=== PATIENT | female | born 1960 | race Caucasian/White ===

== ENCOUNTER 2016-12-17 06:35 | Day surgery (SDC) | payer BC ==
[~2016-12-17] VITALS: Ht 154.9 cm; Wt 65.5 kg
[~2016-12-17 06:35] MED LIST: LOSA1TAB19 PO; NAPR-688 PO; ONDA4TAB11 PO; ONDA4TAB8 PO
[2016-12-17] MEDS ORDERED: CHOL100062 PO (06:59)
[2016-12-17 07:01] VITALS: Ht 154.9 cm; Wt 65.5 kg
[2016-12-17 07:21] VITALS: BP 127/79; PULSE 59; RESP 15
[2016-12-17] MEDS ORDERED: MIDAZOLAM 1 MG/ML 2 ML INJ ONE ×2 (08:33→08:34)
[2016-12-17] MEDS ORDERED: FENTAnyl 50 MCG/ML VIAL ONE (08:34)
[2016-12-17 09:05] VITALS: BP 101/67; PULSE 48; RESP 10
--- NOTE | 2016-12-31 11:00 | GILP ---
Grayson PINEDA PROCEDURE DATE OF PROCEDURE: 12/17/2016 SURGEON: Mira Crandall MD PROCEDURE PERFORMED: Colonoscopy. PREOPERATIVE DIAGNOSIS: Screening colonoscopy. POSTOPERATIVE DIAGNOSES: 1. Colonoscopy all the way to the cecum. 2. Internal hemorrhoids. 3. No colon neoplasm was identified. INDICATION: The patient is a 56-year-old female patient who was scheduled for screening colonoscopy. The procedure and possible complications were well-explained to the patient, and the patient understood and consented to the procedure. DESCRIPTION OF PROCEDURE: The colonoscope was carefully introduced into the rectum under vision, it was advanced all the way to the cecum. Findings: The patient had internal hemorrhoids, no colon neoplasm was identified. The patient tolerated the procedure very well and there was no complication from the procedure. At the end of the procedure the patient was awake, with stable vital signs and was discharged to the care of the family. IMPRESSION: 1. Colonoscopy all the way to the cecum. 2. Internal hemorrhoids. 3. No colon neoplasm was identified. PLAN: Next screening colonoscopy will be in 10 years. Dictated By: MD MIGUE Daly/roberto/braulio /Document#: [id number] Conf#:[id number] DID#: [id number] CC: Mira Cradnall MD;*[facility]*
== END 2016-12-17 12:32 | disposition home or self-care (01) ==
LOC: GIL 06:35
PROVIDERS: ATTEND Internal Medicine Gastroenterology
DX: Z12.11 Encounter for screening for malignant neoplasm of colon (principal); K64.8 Other hemorrhoids; I10 Essential (primary) hypertension
CPT/HCPCS: 45378; J2250; J3010; Z7610